=== PATIENT | male | born 1955 | race Caucasian/White ===

== ENCOUNTER 2024-09-08 07:30 | Outpatient (CLI) | payer OTHER, SELFPAY ==
--- NOTE | ~2024-09-08 | MR_ITS ---
EXAMINATION: MR shoulder RT wo con DATE: 09/08/2024 08:08 INDICATION: Chronic right shoulder pain TECHNIQUE: Magnetic resonance imaging (MRI) of the right shoulder was performed without intravenous c ontrast. Sequences included axial PD-weighted FS FSE, coronal oblique PD-weighted FS FSE, coronal obl ique T2-weighted FS FSE, sagittal PD-weighted FS FSE, and sagittal T1-weighted SE. COMPARISON: None. FINDINGS: Coracoacromial arch: The acromion undersurface is curved in morphology (type II). The coracoacromial ligament is normal. M ild acromioclavicular osteoarthritis. Rotator cuff: Mild supraspinatus tendinopathy without tear. The infraspinatus, teres minor and subscapularis tendon s are normal. Normal rotator cuff muscle bulk and signal. Biceps tendon, glenoid labrum and glenohumeral cartilage: Long head of the biceps tendon is normal. There is diffuse tear involving the entire labrum with more irregular degenerative tearing present at the posterior superior and anterosuperior labrum. There is associated subarticular cystlike changes along the 1:00-9:00 position of the superior to posterior r im of the glenoid. There is partial thickness cartilage loss along the glenoid most prominent inferio rly where there is associated subarticular edema-like signal change as well as along the superomedial to inferomedial aspect of the humeral head without degenerative subchondral changes. Fluid: Physiologic amount of fluid in the glenohumeral joint and biceps tendon sheath. No loose osteochondr al bodies. No abnormal fluid in the subacromial/subdeltoid bursa to suggest bursitis. Bones: Bone alignment is normal. No fracture or pathologic marrow replacing process. IMPRESSION: 1. 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 2. Mild supraspinatus tendinopathy without tear. 3. Mild acromioclavicular osteoarthritis. Reviewed, dictated and finalized at location A.
== END 2024-09-08 07:31 | disposition home or self-care (01) ==
DX: M19.011 Primary osteoarthritis, right shoulder (principal); S43.491A Other sprain of right shoulder joint, initial encounter; X58.XXXA Exposure to other specified factors, initial encounter
CPT/HCPCS: 73221